=== PATIENT | female | born 1980 | race Caucasian/White ===

== ENCOUNTER 2020-07-27 00:51 | Emergency (ER) | payer SELFPAY ==
--- NOTE | 2020-07-27 01:40 | ER Document Report ---
ED Substance Abuse / Acc. OD - General Chief Complaint: Drug Abuse Stated Complaint: POSSIBLE DRUG USE Time Seen by Provider: 07/27/20 01:27 Mode of Arrival: Ambulatory Information source: Patient Notes: MY NOTES 39-year-old female arrives by EMS after she was knocking on apartment doors at [facility] [address]. She was screaming and asking for help. Patient was very cold and in her light clothing had to have heat packs and warming blankets used for patient. She arrived with a temperature 97.8 orally. Her blood pressure was 138/92 pulse was 85 respirations 20 and saturations 96%. Her BGL was 93 upon arrival. She asked for something to eat and drink when she arrives. She reports she has abscess to her left forearm and it is approximately 8 cm diameter. She also has around 10 or so distal leg lesions just above her ankle. She reports she does not shoot up and using her legs. These may be IV sites versus septic emboli sites. Patient is fairly reliable as far as admitting to using morphine and fentanyl and methamphetamine. Patient begins to cry when she says her ex- took the children away and a divorce proceedings because she is a drug user. Patient reports she has some leg cramps but denies any rhinorrhea or sore throat or cough or cephalgia. - HPI Patient complains to provider of: Drug abuse, Substance abuse Onset: Just prior to arrival Onset/Duration: Sudden Quality of pain: Achy Severity: Mild Pain Level: 1 Situational problems related to: Recent divorce - Related Data Allergies/Adverse Reactions: Iodinated Contrast Media Allergy (Verified 07/27/20 02:22) Past Medical History - General Information source: Patient, Emergency Med Personnel - Social History Smoking Status: Current Every Day Smoker Cigarette use (# per day): Yes - @4-5/day Chew tobacco use (# tins/day): No Smoking Education Provided: Yes Frequency of alcohol use: None Drug Abuse: Heroin, Methamphetamine Lives with: Homeless Family History: Reviewed & Not Pertinent Patient has suicidal ideation: No Patient has homicidal ideation: No Review of Systems - Review of Systems Constitutional: No symptoms reported EENT: No symptoms reported Cardiovascular: No symptoms reported Respiratory: No symptoms reported Gastrointestinal: No symptoms reported Genitourinary: No symptoms reported Female Genitourinary: No symptoms reported Musculoskeletal: No symptoms reported Skin: See HPI, Lesions Hematologic/Lymphatic: No symptoms reported Neurological/Psychological: No symptoms reported, See HPI. denies: Sensory change, Homicidal ideation, Loss of power, Paralysis, Seizure, Lost consciou sness, Speech impairment, Numbness, Suicidal ideation Physical Exam - Vital signs Vitals: Temp Resp BP Pulse Ox 97.8 F 13 131/101 H 95 07/27/20 01:39 07/27/20 01:39 07/27/20 01:39 07/27/20 01:39 Interpretation: Normal - General General appearance: Appears well, Alert - HEENT Head: Normocephalic, Atraumatic Eyes: Normal Pupils: PERRL - Respiratory Respiratory status: No respiratory distress Chest status: Nontender Breath sounds: Normal Chest palpation: Normal - Cardiovascular Rhythm: Regular Heart sounds: Normal auscultation Murmur: No - Abdominal Inspection: Normal Distension: No distension Bowel sounds: Normal Tenderness: Nontender Organomegaly: No organomegaly - Back Back: Normal, Nontender - Extremities General upper extremity: Normal inspection, Tender - Abscess to the left forearm approximately 8 cm diameter with crusting, Normal color, Normal ROM, Normal temperature General lower extremity: Tender, Normal color, Normal ROM, Normal temperature, Normal weight bearing, Other - Patient with multiple 1.5 cm ulcerations to both of her lower legs anteriorly just before ankles.. No: Chris's sign - Neurological Neuro grossly intact: Yes Cognition: Normal Orientation: AAOx4 Melody Coma Scale Eye Opening: Spontaneous Melody Coma Scale Verbal: Oriented [place] Coma Scale Motor: Obeys Commands [place] Coma Scale Total: 15 Speech: Normal Motor strength normal: LUE, RUE, LLE, RLE Sensory: Normal - Psychological Associated symptoms: Anxious, Other - Nonsuicidal nonhomicidal - Skin Skin Temperature: Warm Skin Moisture: Dry Skin Color: Other - Skin lesions to left forearm abscess with crusting as well as skin ulcerations to bilateral lower legs. Course - Vital Signs Vital signs: Temp Pulse Resp BP Pulse Ox 97.8 F 10 L 128/87 H 100 07/27/20 01:39 07/27/20 05:01 07/27/20 05:01 07/27/20 05:01 - Laboratory Results Result Diagrams: 07/27/20 03:49 07/27/20 03:49 Laboratory Results Interpreted: 07/27/20 07/27/20 07/27/20 03:05 03:49 03:49 MCV 77 L MCH 26.1 L RDW 16.2 H Direct Bilirubin 0.5 H AST 207 H ALT 161 H Alkaline Phosphatase 132 H Urine Ketones 20 H Urine Nitrite POSITIVE H Ur Leukocyte Esterase MODERATE H Salicylates < 1.0 L Acetaminophen < 10 L Critical Laboratory Results Reviewed: Yes Attending or Supervising Physician who Reviewed Labs: GINO RIVERA JR - Radiology Results Critical Radiology Results Reviewed: No Critical Results Attending or Supervising Physician who Reviewed Radiology: GINO RIVERA JR Discharge - Discharge Clinical Impression: Homeless, Drug abuse and dependence, secondary gain Abscess of skin Qualifiers: Site of cutaneous abscess: extremity Site of cutaneous abscess of extremity: lower extremity Laterality: unspecified laterality Qualified Code(s): L02.419 - Cutaneous abscess of limb, unspecified Condition: Stable Disposition: OTHER
[2020-07-27] MEDS ORDERED: CEPHALEXIN 500 MG CAPSULE PO ONE (03:08)
[2020-07-27 03:28] LABS: APPEARANCE,URINE CLEAR; BILIRUBIN,URINE NEGATIVE (NEGATIVE); COLOR,URINE YELLOW; GLUCOSE, URINE NEGATIVE (NEGATIVE); KETONES,URINE 20 mg/dL (NEGATIVE); LEUKOCYTE ESTERASE,URINE MODERATE (NEGATIVE); NITRITE,URINE POSITIVE (NEGATIVE); PROTEIN,URINE NEGATIVE (NEGATIVE); URINE SPECIFIC GRAVITY 1.006; UROBILINOGEN,URINE NEGATIVE mg/dL (<2.0)
[2020-07-27 03:45] LABS: URINE BARBITURATES SCREEN NEGATIVE; URINE BENZODIAZEPINES SCREEN NEGATIVE; URINE COCAINE SCREEN NEGATIVE; URINE METHADONE SCREEN NEGATIVE; URINE PHENCYCLIDINE SCREEN NEGATIVE
[2020-07-27 03:55] LABS: URINE MARIJUANA (THC) SCREEN UNCONFIRMED POSITIVE
[2020-07-27 04:03] LABS: ABSOLUTE BASOPHILS # (AUTO) 0.1 10^3/uL (0.0-0.2); ABSOLUTE EOSINOPHILS # (AUTO) 0.4 10^3/uL (0.0-0.6); ABSOLUTE LYMPHOCYTES (AUTO) 2.2 10^3/uL (0.5-4.7); ABSOLUTE MONOCYTES (AUTO) 0.5 10^3/uL (0.1-1.4); ABSOLUTE NEUT (AUTO) 4.6 10^3/uL (1.7-8.2); BASOPHILS % (AUTO) 1.1 % (0-2); EOSINOPHILS % (AUTO) 5.6 % (0-6); HEMATOCRIT 36.3 % (36.0-47.0); HEMOGLOBIN 12.3 g/dL (12.0-15.5); MEAN CORPUSCULAR HEMOGLOBIN 26.1 pg (27.0-33.4); MEAN CORPUSCULAR HGB CONC 33.9 g/dL (32.0-36.0); MEAN CORPUSCULAR VOLUME 77 fl (80-97); MONOCYTES % (AUTO) 6.7 % (3-13); PLATELET COUNT 285 10^3/uL (150-450); RED BLOOD COUNT 4.71 10^6/uL (3.72-5.28); RED CELL DISTRIBUTION WIDTH 16.2 % (11.5-14.0); SEGMENTED NEUTROPHILS % (AUTO) 58.6 % (42-78); TOTAL CELLS COUNTED % (AUTO) 100 %; WHITE BLOOD COUNT 7.9 10^3/uL (4.0-10.5)
[2020-07-27 04:15] LABS: ALBUMIN 3.5 g/dL (3.5-5.0); ALKALINE PHOSPHATASE 132 U/L (38-126); ANION GAP 7 (5-19); ASPARTATE AMINO TRANSFERASE 207 U/L (14-36); BILIRUBIN,DIRECT 0.5 mg/dL (0.0-0.4); BILIRUBIN,TOTAL 1.1 mg/dL (0.2-1.3); BLOOD UREA NITROGEN 12 mg/dL (7-20); CALCIUM 8.7 mg/dL (8.4-10.2); CARBON DIOXIDE 26 mmol/L (22-30); CHLORIDE 106 mmol/L (98-107); GLUCOSE 94 mg/dL (75-110); POTASSIUM 3.6 mmol/L (3.6-5.0); TOTAL PROTEIN 7.7 g/dL (6.3-8.2)
[2020-07-27 04:26] LABS: ACETAMINOPHEN < 10 ug/mL (10-30); ALCOHOL < 10 mg/dL (NONE DETECTED); SALICYLATE < 1.0 mg/dL (2.0-20.0)
[2020-07-27] MEDS ORDERED: LEVOFLOXACIN 500 MG TABLET PO ONE (06:00)
[2020-07-27] MEDS ORDERED: PROMETHAZINE HCL 25 MG TABLET PO ONE (06:17)
[2020-07-27 09:46] VITALS: BP 122/81
[2020-07-27] MEDS ORDERED: IBUPROFEN 600 MG TABLET PO ONE (12:53)
--- NOTE | 2020-07-27 17:56 | PSYCHOLOGICAL NOTE ---
Psych Note - Psych Note Date seen by psych provider: 07/27/20 Time seen by psych provider: 11:20 Psych Note: Reason for Consult: unknown reason, suspected drug use? Consent permissions: None [id number] Patient is a 39 year old female who was admitted to the ED via EMS due to drug use and alleged hypothermia. Patient denies suicidal and homicidal ideation, plan, and intent. She states she is not involved with mental health services. She reports using heroin daily. Patient states she came to the ED because, I think it was hypothermia. I was out in the cold too long. My roommate kicked me out. She goes crazy sometimes. Patient denies mental health history to include suicide attempts or inpatient hospitalizations in the past. She states she is not okay to leave because I am in pain. Continues to deny suicidal ideation, plan, and intent. Patient states she is unsure if she can go back to her roommates home, but plans to get her belongings with a senior java software developer. Patient was alert and oriented to self, person, place, time and situation. Mood was euthymic with congruent affect. She denies current suicidal and homicidal ideation, plan, and intent. Patient did not appear to be responding to internal stimuli as evidenced by fair eye contact and answering questions appropriately when addressed. Thought processes are linear and organized. Conversational speech was within normal limits for rate, tone and prosody. Intellectual abilities are estimated to be average. Insight and judgment are fair due to calling EMS for medical concerns and impulse control was poor as evidenced by drug use. Patient engages appropriately. She demonstrates future forward goal oriented thinking as she talks about getting her belongings from her friends house. Clinical Presentation: drug use Impression\plan: Patient is cleared from psychiatric services. Patient was admitted to the ED for medical concerns. There was never reported concern for SI/HI. Patient denies suicidal and homicidal ideation, plan, and intent. She denies mental health history. Patient was cleared from psychiatric services. The plan was provide community resource sheet for outpatient facilities and detox/ substance use facilities, provide long-term resources, and mobile crisis information. Unfortunately, patient was discharged at 1400. Her discharge note was entered into the ED medical providers note at 1402. Clinician entered patients room to provide resources and she was not available. According to nurse, she received discharge paperwork, however it is unclear if resources were present on discharge paperwork as her discharge time is prior to behavioral he alth discharge addendum. Dr. Avery was consulted to care management of this patient; attending physicians in agreement with recommendations and disposition.
--- NOTE | 2020-07-27 23:38 | EKG REPORT ---
SEVERITY:- NORMAL ECG - SINUS RHYTHM : Confirmed by: Krystina Downs 27-Jul-2020 23:37:37
== END 2020-07-27 14:00 | disposition home or self-care (01) ==
LOC: ER 00:51
DX: F15.20 Other stimulant dependence, uncomplicated (principal); F19.20 Other psychoactive substance dependence, uncomplicated; L02.414 Cutaneous abscess of left upper limb; L97.929 Non-pressure chronic ulcer of unspecified part of left lower leg with unspecified severity; L97.919 Non-pressure chronic ulcer of unspecified part of right lower leg with unspecified severity; F17.210 Nicotine dependence, cigarettes, uncomplicated; Z59.0 Homelessness
CPT/HCPCS: 36415; 80053; 80307; 81001; 85025; 93005; 93010; 99284